=== PATIENT | male | born 1960 | race Caucasian/White ===

== ENCOUNTER 2023-01-06 07:28 | Emergency (ER) | payer BC, OTHER ==
[2023-01-06 07:37] VITALS: BMI 37.6
[2023-01-06 09:31] LABS: BASO % 0.6 % (0-2.0); HEMATOCRIT 46.4 % (35.4-49); HEMOGLOBIN 16.1 GM/dL (11.7-16.9); LYMPH % 17.8 % (8-40); MCH 31.9 pg (25.7-33.7); MCHC 34.6 g/dl (32.0-35.9); MEAN CELL VOLUME 92.2 fl (80-96); MEAN PLT VOLUME 8.8 fl (7.5-11.1); MONO % 8.5 % (3.8-10.2); NEUT % 72.1 % (42.8-82.8); PLATELET COUNT 204 10^3/uL (134-434); RBC 5.03 M/mm3 (4.00-5.60); RDW 13.4 % (11.9-15.9)
[2023-01-06 09:42] LABS: INR 1.14 (0.83-1.09); PROTHROMBIN TIME (PATIENT) 13.2 SEC (9.7-13.0)
[2023-01-06 09:44] LABS: ACTIVATED PTT 32.8 SECONDS (25.2-36.5)
[2023-01-06 09:55] LABS: POTASSIUM 5.1 mmol/L (3.5-5.1)
[2023-01-06 09:57] LABS: ALBUMIN 3.9 g/dl (3.4-5.0); BLOOD UREA NITROGEN 15.6 mg/dL (7-18); CALCIUM 9.2 mg/dL (8.5-10.1)
[2023-01-06 10:02] LABS: BILIRUBIN,TOTAL 0.7 mg/dL (0.2-1)
[2023-01-06 10:05] LABS: N-TERMINAL BNP 142.3 pg/ml (5-125)
[2023-01-06] MEDS ORDERED: DEXAMETHASONE SOD PHOSPHATE 10 MG/1 ML VIAL ONE (14:00)
[2023-01-06] MEDS ORDERED: ALBUTEROL SO4 2.5/IPRATROPIUM 0.5 INH SOL 3 ML VIAL.NEB. NEB ONE ×2 (14:00→15:53)
[2023-01-06 15:48] VITALS: BP 140/62; PULSE 91; RESP 18; TEMP 98.1
[2023-01-06] MEDS ORDERED: DEXAMETHASONE SOD PHOSPHATE 10 MG/1 ML VIAL IVPUSH ONE (15:53)
== END 2023-01-06 16:05 | disposition home or self-care (01) ==
LOC: JER 07:28
PROC: 3E033GC Introduction of Other Therapeutic Substance into Peripheral Vein, Percutaneous Approach (ICD-10-PCS; principal; 2023-01-06)
PROC: 3E0F7GC Introduction of Other Therapeutic Substance into Respiratory Tract, Via Natural or Artificial Opening (ICD-10-PCS; 2023-01-06)
DX: R06.02 Shortness of breath (principal); R06.09 Other forms of dyspnea; R07.89 Other chest pain; S00.10XA Contusion of unspecified eyelid and periocular area, initial encounter; R19.7 Diarrhea, unspecified; W19.XXXA Unspecified fall, initial encounter; Z20.822 Contact with and (suspected) exposure to COVID-19
CPT/HCPCS: 0241U-QW; 36415; 70450-TC; 71046-TC-FY; 80053; 83880; 84484; 85025; 85610; 85730; 93005; 93010; 93308; 99285-25; J1100